=== PATIENT | male | born 1960 | race African-American/Black ===

== ENCOUNTER 2019-05-12 06:16 | Emergency (ER) | payer BC, OTHER ==
[2019-05-12] MEDS ORDERED: Ketamine 50 MG/ML (10ML VIAL) ONE (07:13)
[2019-05-12] MEDS ORDERED: Fentanyl 100 MCG/2 ML VIAL ONE (07:24)
[2019-05-12] MEDS ORDERED: HYDROcodone/Acetaminophen 5/325 mg Tablet ONE (07:56)
--- NOTE | 2019-05-12 14:25 | RAD ---
RIGHT HUMERUS 2 VIEWS: FINDINGS: There is an oblique angulated and displaced fracture of the mid humeral shaft. POS: [facility]
--- NOTE | 2019-05-12 15:00 | RAD ---
RIGHT SHOULDER 2 VIEWS: Date: 05/12/19 HISTORY: Injury, fall. FINDINGS: An oblique displaced fracture of mid humeral shaft has been described on humeral films. Shoulder garth cates fracture lines extending into the humeral head and neck without displacement at the proximal hu merus. No dislocation. IMPRESSION: Fracture lines involve humeral head and neck without significant displacement. POS: [facility]
--- NOTE | 2019-05-12 15:01 | RAD ---
RIGHT HUMERUS SINGLE VIEW: Date: 05/12/19 INDICATION: Post reduction. FINDINGS/IMPRESSION: The oblique angulated displaced fracture mid humeral shaft shows reduction. There is less displacemen t and angulation on this post reduction exam. POS: [facility]
== END 2019-05-12 08:16 | disposition home or self-care (01) ==
LOC: BURERS 06:16
DX: S42.331A Displaced oblique fracture of shaft of humerus, right arm, initial encounter for closed fracture (principal); S42.211A Unspecified displaced fracture of surgical neck of right humerus, initial encounter for closed fracture; S42.201A Unspecified fracture of upper end of right humerus, initial encounter for closed fracture; I10 Essential (primary) hypertension; Z79.899 Other long term (current) drug therapy; W18.09XA Striking against other object with subsequent fall, initial encounter
CPT/HCPCS: 24500; 93005; 96374; 96375; J3010

== ENCOUNTER 2020-04-21 12:03 | Emergency (ER) | payer BC, OTHER ==
[2020-04-21] MEDS ORDERED: Lidocaine 2% PF 5 ML VIAL ONE ×2 (12:12→12:43)
[2020-04-21] MEDS ORDERED: Adacel (T-DAP) 0.5 ML SYRINGE ONE (12:12)
[2020-04-21] MEDS ORDERED: CEFAZOLIN 1 GM VIAL ONE (12:42)
[2020-04-21] MEDS ORDERED: Sterile Water 100 ML ONE (12:45)
--- NOTE | 2020-04-21 17:35 | RAD ---
RIGHT MIDDLE FINGER: 04/21/20 A comminuted fracture of the distal phalanx of the middle finger is seen. There is some displacement of fragments and some of the fracture lines go into the DIP joint. Some degenerative change is sugges pily in the PIP joint and perhaps the third MCP joint. IMPRESSION: Comminuted, slightly displaced fracture of the distal phalanx. POS: [facility]
== END 2020-04-21 13:22 | disposition short-term general hospital (02) ==
LOC: BURERS 12:03
DX: S62.632B Displaced fracture of distal phalanx of right middle finger, initial encounter for open fracture (principal); I10 Essential (primary) hypertension; Z79.899 Other long term (current) drug therapy; Z23 Encounter for immunization
CPT/HCPCS: 64450; 90471; 90715; 96372; J0690